=== PATIENT | male | born 1975 | race Caucasian/White ===

== ENCOUNTER 2017-05-20 17:53 | Inpatient (IN) | payer BC ==
[~2017-05-20] VITALS: Ht 180.3 cm; Wt 73.5 kg
[~2017-05-20 17:53] MED LIST: ATEN1TAB47 PO; BUPIVACAINE /PF 0.25% 30 ML VIAL INJ ONE; CEFAZOLIN 2 GM IVPB PREMIX 50 ML IV ONE; KETOROLAC TROMETHAMINE 30 MG VIAL IVP ONE; LIDOCAINE/EPI 1% 1:100000 20 ML VIAL INJ ONE; LR 1,000 ML IV.SOLN IV ONE; MEPERIDINE HCL/PF 100 MG/ML AMP IM ONE; MIDAZOLAM HCL 5 MG/5 ML VIAL IVP ONE; ONDANSETRON HCL 4 MG/2 ML VIAL IVP ONE; PROPOFOL 200MG/ 20ML VIAL (DIPRIVAN) IV ONE; SEVOFLURANE 15 MIN GAS INH ONE; fentaNYL CITRATE 250 MCG/5 ML AMP IV ONE
[2017-05-20 17:55] VITALS: BP_SYST 144
[2017-05-20] MEDS ORDERED: IBUPROFEN 800 MG TABLET PO ONE (18:30)
[2017-05-20] MEDS ORDERED: MORPHINE SULFATE 10 MG/ML VIAL IM ONE (19:15)
[2017-05-20] MEDS ORDERED: ONDANSETRON HCL 4 MG/2 ML VIAL IVP ONE (20:00)
[2017-05-20] MEDS ORDERED: HYDROmorphone 1 MG INJ. 1 MG/ML AMPUL IVP ONE (20:00)
[2017-05-20] MEDS ORDERED: NACL 0.9% 1,000 ML IV ONE (20:00)
[2017-05-20] MEDS ORDERED: LISI-209 PO (20:15)
[2017-05-20] MEDS ORDERED: TRAZ-123 PO (20:15)
[2017-05-20] MEDS ORDERED: GABA-531 PO (20:15)
[2017-05-20] MEDS ORDERED: LIP40 PO (20:15)
[2017-05-20] MEDS ORDERED: SITA100T7 PO (20:15)
[2017-05-20] MEDS ORDERED: GLU500 PO (20:15)
[2017-05-20] MEDS ORDERED: RIVA20TA PO (20:15)
[2017-05-20] MEDS ORDERED: METO25TA3 PO (20:15)
[2017-05-20] MEDS ORDERED: DULO60CA41 PO (20:15)
[2017-05-20] MEDS ORDERED: FOLI-43 PO (20:15)
[2017-05-20] MEDS ORDERED: METO25TA6 PO (20:15)
[2017-05-20 20:27] LABS: BASOPHILS # (AUTO) 0.1 K/uL (0.0-0.2); BASOPHILS % (AUTO) 0.4 % (0.0-2.0); EOSINOPHILS # (AUTO) 0.5 K/uL (0.0-0.4); HEMATOCRIT 42.3 % (36-54); HEMOGLOBIN 14.6 g/dL (14.0-18.0); LYMPHOCYTES # (AUTO) 1.8 K/uL (1.0-5.5); LYMPHOCYTES % (AUTO) 9.8 % (20.5-51.5); MEAN CORPUSCULAR HEMOGLOBIN 31 pg (27-31); MEAN CORPUSCULAR HGB CONC 35 % (32-36); MEAN CORPUSCULAR VOLUME 89 fL (79.0-98.0); MONOCYTES # (AUTO) 1.1 K/uL (0.0-1.0); MONOCYTES % (AUTO) 6.2 % (1.7-9.3); NEUTROPHILS # (AUTO) 14.5 K/uL (1.8-7.7); NEUTROPHILS % (AUTO) 80.6 % (40.0-70.0); PLATELET COUNT (AUTO) 184 K/uL (130-430); RED BLOOD CELL COUNT(AUTO) 4.74 MIL/uL (4.2-6.2); RED CELL DISTRIBUTION WIDTH 12.1 % (9.0-15.0)
[2017-05-20 20:37] LABS: CALCIUM 7.8 mg/dL (8.4-11.0); CREATININE 0.9 mg/dL (0.55-1.30); POTASSIUM 3.9 mmol/L (3.5-5.1)
[2017-05-20 20:42] LABS: ALBUMIN 3.5 g/dL (3.4-4.8); INR 1.2 (0.80-1.20); PROTHROMBIN TIME 12.3 SECS (9.5-12.5); TOTAL BILIRUBIN 0.3 mg/dL (0.0-1.0)
[2017-05-20 20:59] VITALS: BP_SYST 170
[2017-05-20] MEDS ORDERED: DIPHENHYDRAMINE INJ 50 MG/ML VIAL IVP PRN (21:30)
[2017-05-20] MEDS ORDERED: HYDROmorphone 1 MG INJ. 1 MG/ML AMPUL IVP PRN (21:30)
[2017-05-20] MEDS ORDERED: ONDANSETRON HCL 4 MG/2 ML VIAL IVP PRN (21:30)
[2017-05-20] MEDS: HYDROmorphone 2 MG/ML VIAL IVP PRN (21:43)
[2017-05-20] MEDS ORDERED: DEXTROSE 50% JECT 50 ML DISP.SYRIN IVP PRN (22:30)
[2017-05-20 22:50] VITALS: BP_SYST 160
[2017-05-20 23:27] LABS: BASOPHILS # (AUTO) 0.1 K/uL (0.0-0.2); EOSINOPHILS # (AUTO) 0.3 K/uL (0.0-0.4); HEMOGLOBIN 13.8 g/dL (14.0-18.0); MEAN CORPUSCULAR HEMOGLOBIN 30 pg (27-31); MEAN CORPUSCULAR HGB CONC 34 % (32-36); MONOCYTES # (AUTO) 1.2 K/uL (0.0-1.0); MONOCYTES % (AUTO) 6.6 % (1.7-9.3)
[2017-05-20 23:30] LABS: BASOPHILS % (AUTO) 0.4 % (0.0-2.0); EOSINOPHILS % (AUTO) 1.8 % (0.0-4.0); HEMATOCRIT 40.7 % (36-54); LYMPHOCYTES # (AUTO) 1.4 K/uL (1.0-5.5); MEAN CORPUSCULAR VOLUME 88 fL (79.0-98.0); NEUTROPHILS # (AUTO) 14.8 K/uL (1.8-7.7); NEUTROPHILS % (AUTO) 83.2 % (40.0-70.0); PLATELET COUNT (AUTO) 177 K/uL (130-430); RED BLOOD CELL COUNT(AUTO) 4.61 MIL/uL (4.2-6.2); RED CELL DISTRIBUTION WIDTH 12.3 % (9.0-15.0); WHITE BLOOD COUNT (AUTO) 17.8 K/uL (4.8-10.8)
[2017-05-20] MEDS: D5LR 1,000 ML IV SCH (23:40)
[2017-05-21 01:30] VITALS: BP_SYST 151
[2017-05-21] MEDS: HYDROmorphone 2 MG/ML VIAL IVP PRN ×8 (01:30→20:47)
[2017-05-21 05:30] VITALS: BP_SYST 194
[2017-05-21] MEDS: INSULIN REGULAR, HUMAN 100 UNITS/ML, 10 ML VIAL (novoLIN R) SUBCUT PRN ×3 (06:33→22:28)
[2017-05-21] MEDS: D5LR 1,000 ML IV SCH ×2 (06:35→14:39)
[2017-05-21] MEDS ORDERED: cloNIDine HCL 0.2 MG TABLET PO PRN (07:00)
[2017-05-21] MEDS ORDERED: HYDROmorphone 1 MG INJ. 1 MG/ML AMPUL IVP PRN (07:15)
[2017-05-21 07:56] LABS: BASOPHILS # (AUTO) 0.1 K/uL (0.0-0.2); BASOPHILS % (AUTO) 0.5 % (0.0-2.0); EOSINOPHILS # (AUTO) 0.3 K/uL (0.0-0.4); EOSINOPHILS % (AUTO) 3.3 % (0.0-4.0); HEMATOCRIT 40.6 % (36-54); HEMOGLOBIN 13.8 g/dL (14.0-18.0); LYMPHOCYTES # (AUTO) 1.7 K/uL (1.0-5.5); LYMPHOCYTES % (AUTO) 16.3 % (20.5-51.5); MEAN CORPUSCULAR HEMOGLOBIN 30 pg (27-31); MEAN CORPUSCULAR HGB CONC 34 % (32-36); MEAN CORPUSCULAR VOLUME 88 fL (79.0-98.0); MONOCYTES % (AUTO) 9.7 % (1.7-9.3); NEUTROPHILS # (AUTO) 7.5 K/uL (1.8-7.7); NEUTROPHILS % (AUTO) 70.2 % (40.0-70.0); PLATELET COUNT (AUTO) 179 K/uL (130-430); RED BLOOD CELL COUNT(AUTO) 4.63 MIL/uL (4.2-6.2); RED CELL DISTRIBUTION WIDTH 12.1 % (9.0-15.0); WHITE BLOOD COUNT (AUTO) 10.6 K/uL (4.8-10.8)
[2017-05-21 08:00] VITALS: BP_SYST 147
[2017-05-21 08:22] LABS: ALBUMIN 3.4 g/dL (3.4-4.8); CALCIUM 8.1 mg/dL (8.4-11.0); CREATININE 0.74 mg/dL (0.55-1.30); POTASSIUM 4.1 mmol/L (3.5-5.1); THYROID STIMULATING HORMONE 3.73 uIu/mL (0.34-4.82); TOTAL BILIRUBIN 0.4 mg/dL (0.0-1.0)
[2017-05-21] MEDS: ATORVASTATIN 20 MG TABLET PO SCH (08:28)
[2017-05-21] MEDS: FOLIC ACID 1 MG TABLET PO SCH (08:28)
[2017-05-21] MEDS: traZODone HCL 50 MG TABLET (DESYREL) PO SCH (08:29)
[2017-05-21] MEDS: metFORMIN HCL 500 MG TABLET PO SCH ×2 (08:29→18:04)
[2017-05-21] MEDS: LISINOPRIL 5 MG TABLET PO SCH (08:29)
[2017-05-21] MEDS: GABAPENTIN 300 MG CAPSULE PO SCH ×2 (08:29→21:47)
[2017-05-21] MEDS: DULoxetine HCL 30 MG CAPSULE.DR (CYMBALTA) PO SCH (08:30)
[2017-05-21] MEDS: METOPROLOL TARTRATE 25 MG TABLET PO SCH ×2 (08:30→21:48)
[2017-05-21] MEDS ORDERED: METOPROLOL SUCCINATE 25 MG TAB.SR.24H (TOPROL XL) PO SCH (09:00)
[2017-05-21 12:25] VITALS: BP_SYST 137
[2017-05-21 16:29] VITALS: BP_SYST 136
[2017-05-21] MEDS ORDERED: RIVAROXABAN 10 MG TABLET PO SCH (17:00)
[2017-05-21] MEDS ORDERED: NALOXONE HCL 0.4 MG/ML AMP (NARCAN) IVP PRN (17:30)
[2017-05-21 20:00] VITALS: BP_SYST 146
[2017-05-21] MEDS: NS IV PRN (21:36)
[2017-05-21] MEDS: [UNRECOGNIZED DRUG - OTHER] IV PRN (21:36)
[2017-05-22 00:50] VITALS: BP_SYST 128; BP_SYST 165
[2017-05-22] MEDS: HYDROmorphone 2 MG/ML VIAL IVP PRN (01:55)
[2017-05-22 03:50] LABS: BILIRUBIN,URINE NEGATIVE (NEGATIVE); BLOOD, URINE NEGATIVE (NEGATIVE); CLARITY/URINE CLEAR (CLEAR); COLOR,URINE YELLOW (YELLOW); GLUCOSE,URINE 2+ (NEGATIVE); KETONES,URINE NEGATIVE (NEGATIVE); LEUKOCYTE ESTERASE ,URINE NEGATIVE (NEGATIVE); NITRITE, URINE NEGATIVE (NEGATIVE); PROTEIN URINE NEGATIVE (NEGATIVE); UROBILINOGEN,URINE 0.2 (0.2-1.0)
[2017-05-22 03:55] LABS: BACTERIA,URINE RARE /HPF (None Seen); RBC,URINE 0-3 /HPF (0-3); WBC,URINE 0-3 /HPF (0-3)
[2017-05-22] MEDS: D5LR 1,000 ML IV SCH ×2 (05:53→18:48)
[2017-05-22] MEDS: INSULIN REGULAR, HUMAN 100 UNITS/ML, 10 ML VIAL (novoLIN R) SUBCUT PRN ×4 (06:06→20:22)
[2017-05-22 07:50] LABS: CREATININE 0.8 mg/dL (0.55-1.30); POTASSIUM 4.3 mmol/L (3.5-5.1)
[2017-05-22 07:57] LABS: BASOPHILS % (AUTO) 0.2 % (0.0-2.0); EOSINOPHILS # (AUTO) 0.3 K/uL (0.0-0.4); EOSINOPHILS % (AUTO) 2.2 % (0.0-4.0); HEMATOCRIT 41.2 % (36-54); HEMOGLOBIN 13.4 g/dL (14.0-18.0); LYMPHOCYTES # (AUTO) 1.7 K/uL (1.0-5.5); LYMPHOCYTES % (AUTO) 13.7 % (20.5-51.5); MEAN CORPUSCULAR HEMOGLOBIN 29 pg (27-31); MEAN CORPUSCULAR HGB CONC 33 % (32-36); MEAN CORPUSCULAR VOLUME 89 fL (79.0-98.0); MONOCYTES # (AUTO) 1.2 K/uL (0.0-1.0); MONOCYTES % (AUTO) 9.7 % (1.7-9.3); NEUTROPHILS # (AUTO) 8.9 K/uL (1.8-7.7); NEUTROPHILS % (AUTO) 74.2 % (40.0-70.0); PLATELET COUNT (AUTO) 175 K/uL (130-430); RED BLOOD CELL COUNT(AUTO) 4.61 MIL/uL (4.2-6.2); RED CELL DISTRIBUTION WIDTH 12.4 % (9.0-15.0); WHITE BLOOD COUNT (AUTO) 12.1 K/uL (4.8-10.8)
[2017-05-22 08:03] VITALS: BP_SYST 159
[2017-05-22] MEDS: metFORMIN HCL 500 MG TABLET PO SCH ×2 (08:30→18:00)
[2017-05-22] MEDS: FOLIC ACID 1 MG TABLET PO SCH (09:00)
[2017-05-22] MEDS: GABAPENTIN 300 MG CAPSULE PO SCH ×2 (09:00→20:12)
[2017-05-22] MEDS: traZODone HCL 50 MG TABLET (DESYREL) PO SCH (09:00)
[2017-05-22] MEDS: DULoxetine HCL 30 MG CAPSULE.DR (CYMBALTA) PO SCH (09:00)
[2017-05-22] MEDS: ATORVASTATIN 20 MG TABLET PO SCH (09:00)
[2017-05-22] MEDS: LISINOPRIL 5 MG TABLET PO SCH (09:10)
[2017-05-22] MEDS: METOPROLOL TARTRATE 25 MG TABLET PO SCH ×2 (09:10→20:12)
[2017-05-22 12:36] VITALS: BP_SYST 172
[2017-05-22] MEDS ORDERED: POLYMYXIN 500,000/BACIT.10,000 UNITS in NS IRR 1 L IR ONE (15:50)
[2017-05-22] MEDS ORDERED: LABETALOL 100 MG/ 20ML VIAL IVP PRN (16:30)
[2017-05-22] MEDS ORDERED: MORPHINE 4 MG/ML INJ. SYRINGE IVP PRN (16:30)
[2017-05-22] MEDS ORDERED: HYDROmorphone 1 MG INJ. 1 MG/ML AMPUL IVP PRN (16:30)
[2017-05-22] MEDS ORDERED: MIDAZOLAM HCL 5 MG/5 ML VIAL IVP PRN (16:30)
[2017-05-22] MEDS ORDERED: NALOXONE HCL 0.4 MG/ML AMP (NARCAN) IVP ONE (16:30)
[2017-05-22] MEDS ORDERED: fentaNYL CITRATE/PF 100 MCG/2 ML AMP IVP PRN (16:30)
[2017-05-22] MEDS ORDERED: ONDANSETRON HCL 4 MG/2 ML VIAL IVP ONE (16:30)
[2017-05-22] MEDS ORDERED: HYDROmorphone 1 MG INJ. 1 MG/ML AMPUL ONE (17:23)
[2017-05-22] MEDS: NS IV PRN (18:46)
[2017-05-22] MEDS: [UNRECOGNIZED DRUG - OTHER] IV PRN (18:46)
[2017-05-22 20:08] VITALS: BP_SYST 158
[2017-05-22] MEDS: CEFAZOLIN 1 GM IVPB PREMIX 50 ML IV SCH (22:57)
[2017-05-23] VITALS (7 sets, daily range): BP systolic 122–175
[2017-05-23] MEDS: D5LR 1,000 ML IV SCH (01:00)
[2017-05-23] MEDS: CEFAZOLIN 1 GM IVPB PREMIX 50 ML IV SCH (05:49)
[2017-05-23 07:10] LABS: CALCIUM 8.6 mg/dL (8.4-11.0); CREATININE 0.9 mg/dL (0.55-1.30); POTASSIUM 4.1 mmol/L (3.5-5.1)
[2017-05-23 07:35] LABS: BASOPHILS % (AUTO) 0.1 % (0.0-2.0); HEMATOCRIT 33.8 % (36-54); HEMOGLOBIN 11.8 g/dL (14.0-18.0); LYMPHOCYTES # (AUTO) 1.2 K/uL (1.0-5.5); LYMPHOCYTES % (AUTO) 8.5 % (20.5-51.5); MEAN CORPUSCULAR HEMOGLOBIN 31 pg (27-31); MEAN CORPUSCULAR HGB CONC 35 % (32-36); MEAN CORPUSCULAR VOLUME 88 fL (79.0-98.0); MONOCYTES % (AUTO) 6.7 % (1.7-9.3); NEUTROPHILS # (AUTO) 12.1 K/uL (1.8-7.7); NEUTROPHILS % (AUTO) 84.7 % (40.0-70.0); PLATELET COUNT (AUTO) 181 K/uL (130-430); RED BLOOD CELL COUNT(AUTO) 3.85 MIL/uL (4.2-6.2); RED CELL DISTRIBUTION WIDTH 12.2 % (9.0-15.0); WHITE BLOOD COUNT (AUTO) 14.3 K/uL (4.8-10.8)
[2017-05-23] MEDS: HYDROmorphone 2 MG/ML VIAL IVP PRN ×3 (08:23→18:12)
[2017-05-23] MEDS ORDERED: ENOXAPARIN SODIUM 40 MG/0.4 ML SYRINGE SUBCUT SCH (09:00)
[2017-05-23] MEDS: traZODone HCL 50 MG TABLET (DESYREL) PO SCH (10:22)
[2017-05-23] MEDS: DULoxetine HCL 30 MG CAPSULE.DR (CYMBALTA) PO SCH (10:22)
[2017-05-23] MEDS: ATORVASTATIN 20 MG TABLET PO SCH (10:22)
[2017-05-23] MEDS: FOLIC ACID 1 MG TABLET PO SCH (10:24)
[2017-05-23] MEDS: metFORMIN HCL 500 MG TABLET PO SCH ×2 (10:24→17:59)
[2017-05-23] MEDS: GABAPENTIN 300 MG CAPSULE PO SCH ×2 (10:24→21:02)
[2017-05-23] MEDS: LISINOPRIL 5 MG TABLET PO SCH (10:26)
[2017-05-23] MEDS: METOPROLOL TARTRATE 25 MG TABLET PO SCH ×2 (10:27→21:05)
[2017-05-23] MEDS: INSULIN REGULAR, HUMAN 100 UNITS/ML, 10 ML VIAL (novoLIN R) SUBCUT PRN ×2 (12:25→21:45)
[2017-05-23] MEDS: RIVAROXABAN 10 MG TABLET PO SCH (20:47)
[2017-05-24 00:48] VITALS: BP_SYST 137
[2017-05-24] MEDS: NS IV PRN (03:34)
[2017-05-24] MEDS: [UNRECOGNIZED DRUG - OTHER] IV PRN (03:34)
[2017-05-24] MEDS: INSULIN REGULAR, HUMAN 100 UNITS/ML, 10 ML VIAL (novoLIN R) SUBCUT PRN ×2 (06:15→12:04)
[2017-05-24 08:32] VITALS: BP_SYST 146
[2017-05-24] MEDS: DULoxetine HCL 30 MG CAPSULE.DR (CYMBALTA) PO SCH (08:41)
[2017-05-24] MEDS: ATORVASTATIN 20 MG TABLET PO SCH (08:41)
[2017-05-24] MEDS: FOLIC ACID 1 MG TABLET PO SCH (08:42)
[2017-05-24] MEDS: METOPROLOL TARTRATE 25 MG TABLET PO SCH (08:42)
[2017-05-24] MEDS: GABAPENTIN 300 MG CAPSULE PO SCH (08:43)
[2017-05-24] MEDS: traZODone HCL 50 MG TABLET (DESYREL) PO SCH (08:43)
[2017-05-24] MEDS: LISINOPRIL 5 MG TABLET PO SCH (08:44)
[2017-05-24] MEDS: metFORMIN HCL 500 MG TABLET PO SCH ×2 (11:59→18:45)
[2017-05-24 12:00] VITALS: BP_SYST 136
[2017-05-24 16:00] VITALS: BP_SYST 150
[2017-05-24 17:34] LABS: BASOPHILS # (AUTO) 0.1 K/uL (0.0-0.2); BASOPHILS % (AUTO) 0.7 % (0.0-2.0); EOSINOPHILS # (AUTO) 0.1 K/uL (0.0-0.4); EOSINOPHILS % (AUTO) 1.1 % (0.0-4.0); HEMATOCRIT 34.5 % (36-54); HEMOGLOBIN 11.6 g/dL (14.0-18.0); LYMPHOCYTES # (AUTO) 1.2 K/uL (1.0-5.5); LYMPHOCYTES % (AUTO) 10.4 % (20.5-51.5); MEAN CORPUSCULAR HEMOGLOBIN 30 pg (27-31); MEAN CORPUSCULAR HGB CONC 34 % (32-36); MEAN CORPUSCULAR VOLUME 88 fL (79.0-98.0); MONOCYTES # (AUTO) 1.3 K/uL (0.0-1.0); MONOCYTES % (AUTO) 12.1 % (1.7-9.3); NEUTROPHILS # (AUTO) 8.4 K/uL (1.8-7.7); NEUTROPHILS % (AUTO) 75.7 % (40.0-70.0); PLATELET COUNT (AUTO) 241 K/uL (130-430); RED BLOOD CELL COUNT(AUTO) 3.91 MIL/uL (4.2-6.2); RED CELL DISTRIBUTION WIDTH 12.3 % (9.0-15.0); WHITE BLOOD COUNT (AUTO) 11.1 K/uL (4.8-10.8)
[2017-05-24 17:35] LABS: CALCIUM 8.6 mg/dL (8.4-11.0); CREATININE 0.71 mg/dL (0.55-1.30); POTASSIUM 4.1 mmol/L (3.5-5.1)
[2017-05-24] MEDS: RIVAROXABAN 10 MG TABLET PO SCH (18:45)
[2017-05-24] MEDS ORDERED: HYDR-4100 PO (19:49)
[2017-05-24] MEDS ORDERED: HYDR-2489 PO (19:50)
[2017-05-24 20:01] VITALS: BP_SYST 141; BP_SYST 147
== END 2017-05-24 20:45 | disposition home health service (06) | DRG 482 ==
LOC: SED 17:53 → SMU 20:41 → STU 05-21 21:22
PROVIDERS: ADMIT Internal Medicine; ATTEND Internal Medicine
PROC: 0QS706Z Reposition Left Upper Femur with Intramedullary Internal Fixation Device, Open Approach (ICD-10-PCS; principal; 2017-05-22 13:45)
DX: S72.142A Displaced intertrochanteric fracture of left femur, initial encounter for closed fracture (principal); E11.9 Type 2 diabetes mellitus without complications; I10 Essential (primary) hypertension; Y04.0XXA Assault by unarmed brawl or fight, initial encounter; Z86.718 Personal history of other venous thrombosis and embolism; Y93.89 Activity, other specified; Y92.89 Other specified places as the place of occurrence of the external cause; Y99.8 Other external cause status; Z79.899 Other long term (current) drug therapy
CPT/HCPCS: 36415; 71010; 73502; 76001; 80048; 80053; 80061; 81000-TC; 82962; 83036; 84443-TC; 85025; 85610-TC; 85730-TC; 86886; 86900; 86901; 87081; 93005; 96361; 96372; 96374; 96375; 97116-GP; 99285; C1713; C1769; J0690; J1170; J1200; J1650; J1815; J1885; J2175; J2250; J2270; J2405; J2704; J3010; J3490; J7030; J7120